=== PATIENT | female | born 1985 | race Caucasian/White ===

== ENCOUNTER 2020-08-18 12:30 | Emergency (ER) | payer MEDICAID ==
[2020-08-18 12:36] VITALS: RESP 16; TEMP 98.2
[2020-08-18] MEDS ORDERED: LIDOCAINE 1% INJ 10MG/ML (20 ML MDV) SQ STA (12:52)
--- NOTE | 2020-08-18 12:53 | ED ---
General Adult HPI - General Chief complaint: Wound/Laceration Stated complaint: finger lac Time Seen by Provider: 08/18/20 12:45 Source: patient Mode of arrival: ambulatory Limitations: no limitations - History of Present Illness Initial comments: 35-year-old female presents to the emergency room for a chief complaint of laceration. Patient states that her glass shower door shattered. States she cut her right arm and hand. Patient states she did have a small piece of glass in her foot but she was able to get that out and she no longer has pain. Patient is up-to-date on tetanus as of 1 year ago. Patient denies any difficulty moving the fingers.Patient has no other complaints at this time including shortness of breath, chest pain, abdominal pain, nausea or vomiting, headache, or visual changes. - Related Data Allergies Allergy/AdvReac Type Severity Reaction Status Date / Time No Known Allergies Allergy Verified 08/18/20 12:59 Review of Systems ROS Statement: Those systems with pertinent positive or pertinent negative responses have been documented in the HPI. ROS Other: All systems not noted in ROS Statement are negative. Past Medical History Past Medical History: No Reported History History of Any Multi-Drug Resistant Organisms: None Reported Past Surgical History: No Surgical Hx Reported Past Psychological History: No Psychological Hx Reported Smoking Status: Current every day smoker Past Alcohol Use History: None Reported Past Drug Use History: None Reported General Exam Limitations: no limitations General appearance: alert, in no apparent distress Head exam: Present: atraumatic, normocephalic, normal inspection Eye exam: Present: normal appearance, PERRL, EOMI. Absent: scleral icterus, conjunctival injection, periorbital swelling ENT exam: Present: normal exam, mucous membranes moist Neck exam: Present: normal inspection, full ROM. Absent: tenderness, meningismus, lymphadenopathy Respiratory exam: Present: normal lung sounds bilaterally. Absent: respiratory distress, wheezes, rales, rhonchi, stridor Cardiovascular Exam: Present: regular rate, normal rhythm, normal heart sounds. Absent: systolic murmur, diastolic murmur, rubs, gallop, clicks Extremities exam: Present: full ROM (Full range of motion of the right hand.), normal capillary refill (Capillary refill less than 2 seconds right upper extremity. Radial pulse 2+.), other (Patient has a 1.5 cm laceration on the dorsal right hand and a 2 cm skin tear/laceration on the right forearm.) Course Vital Signs 08/18/20 12:32 Temperature 98.2 F Pulse Rate 122 H Respiratory 16 Rate Blood Pressure 176/110 O2 Sat by Pulse 97 Oximetry Procedures - Laceration Laceration #1 Consent Obtained: verbal consent Indication: laceration Site: hand Size (cm): 1 Description: linear Depth: simple, single layer Anesthetic Used: lidocaine 1% Anesthesia Technique: local infiltration Amount (mls): 2 Pre-repair: wound explored, irrigated extensively, deep structures intact Type of Sutures: nylon Size of Sutures: 5-0 Number of Sutures: 3 Technique: simple, interrupted Patient Tolerated Procedure: well, no complications Medical Decision Making - Medical Decision Making X-rays of the right hand and wrist are negative. I did also inspect for glass in the wound which is not evident. Wounds were irrigated thoroughly with saline pressure irrigation. Stitches were applied to the right hand. Steri-Strips to the right arm as this is not a deep laceration, more consistent with a skin tear. Patient does not have any more glass in her right foot on exam. States it feels better. Patient declines x-ray for this. Patient will return in 7-10 days. Return parameters discussed including signs of infection. She will otherwise follow-up with her doctor. Disposition Clinical Impression: Laceration Disposition: HOME SELF-CARE Condition: Good Instructions (If sedation given, give patient instructions): Laceration (ED), Care For Your Stitches (ED) Additional Instructions: Please keep area clean. Apply antibiotic ointment twice daily. Monitor for signs of infection such as spreading or streaking drainage, redness, or fever and return if these occur. Return if you have any other worsening symptoms. Is patient prescribed a controlled substance at d/c from ED?: No Referrals: Yvette Pike DO [REFERRING] - 1-2 days Time of Disposition: 13:51
--- NOTE | 2020-08-18 13:16 | XR ---
EXAMINATION TYPE: XR hand complete RT DATE OF EXAM: 08/18/2020 CLINICAL HISTORY: Laceration from glass TECHNIQUE: Frontal, lateral and oblique images of the right hand are obtained. COMPARISON: None. FINDINGS: No definite acute fracture, dislocation or radiopaque foreign body. Please note, not all glass is rad iopaque. IMPRESSION: No definite acute fracture, dislocation or radiopaque foreign body. Please note, not all glass is rad iopaque.
--- NOTE | 2020-08-18 13:17 | XR ---
EXAMINATION TYPE: XR wrist complete RT DATE OF EXAM: 08/18/2020 CLINICAL HISTORY: Laceration from glass TECHNIQUE: Frontal, lateral and oblique images of the right wrist are obtained. COMPARISON: None FINDINGS: No definite acute fracture, dislocation or radiopaque foreign body. Please note, not all gl ass is radiopaque. IMPRESSION: No definite acute fracture, dislocation or radiopaque foreign body. Please note, not all glass is rad iopaque.
[2020-08-18] MEDS ORDERED: BACITRACIN OINT 1 EACH PACKET TOPICAL STA (13:51)
[2020-08-18 14:04] VITALS: BP 148/95; PULSE 87
== END 2020-08-18 14:10 | disposition home or self-care (01) ==
LOC: EC 12:30
DX: S61.411A Laceration without foreign body of right hand, initial encounter (principal); F17.200 Nicotine dependence, unspecified, uncomplicated; W25.XXXA Contact with sharp glass, initial encounter
CPT/HCPCS: 73110; 73130; 99283; 12041; J2001

== ENCOUNTER 2021-04-10 15:12 | Emergency (ER) | payer MEDICAID, OTHER ==
[2021-04-10 15:21] VITALS: BP 150/105; PULSE 94; RESP 18; TEMP 98
--- NOTE | 2021-04-10 16:07 | XR ---
EXAMINATION TYPE: XR tibia fibula LT DATE OF EXAM: 04/10/2021 COMPARISON: NONE HISTORY: Pain . TECHNIQUE: 3 views FINDINGS: There is small vertical lucent line on the medial aspect medial tibial condyle that could b e related to nondisplaced chip fracture. This is unusual location for fracture. There is no sign of a joint effusion. The fibula is intact. The ankle joint appears anatomic IMPRESSION: Possible small chip fracture of the medial aspect medial tibial condyle that should be co rrelated with the physical exam.
--- NOTE | 2021-04-10 17:17 | US ---
EXAMINATION TYPE: US venous doppler duplex LE LT DATE OF EXAM: 04/10/2021 5:06 PM COMPARISON: NONE CLINICAL HISTORY: pain, fall, bruising . Post fall from 03/10/2021 leg pain and swelling. SIDE PERFORMED: Left TECHNIQUE: The lower extremity deep venous system is examined utilizing real time linear array sonog wendy with graded compression, doppler sonography and color-flow sonography. VESSELS IMAGED: Common Femoral Vein Deep Femoral Vein Greater Saphenous Vein * Femoral Vein Popliteal Vein Small Saphenous Vein * Proximal Calf Veins (* superficial vessels) No DVT seen at this time. Left Leg: Negative for DVT IMPRESSION: No evidence of deep vein thrombosis in the left leg.
--- NOTE | 2021-04-10 17:19 | ED ---
General Adult HPI - General Chief complaint: Extremity Injury, Lower Stated complaint: Lt leg pain/injury Time Seen by Provider: 04/10/21 15:26 Source: patient Mode of arrival: ambulatory Limitations: no limitations - History of Present Illness Initial comments: 35-year-old female presents for left leg pain. Patient states about 2 weeks ago she tripped and fell on her left knee. States this was bruised. However over the past 2 weeks she states the bruising has dropped into her ankle. She would like to make sure she does not have a blood clot. She denies any calf pain or tenderness.Patient has no other complaints at this time including shortness of breath, chest pain, abdominal pain, nausea or vomiting, headache, or visual changes. - Related Data Allergies Allergy/AdvReac Type Severity Reaction Status Date / Time No Known Allergies Allergy Verified 04/10/21 15:19 Review of Systems ROS Statement: Those systems with pertinent positive or pertinent negative responses have been documented in the HPI. ROS Other: All systems not noted in ROS Statement are negative. Past Medical History Past Medical History: No Reported History History of Any Multi-Drug Resistant Organisms: None Reported Past Surgical History: No Surgical Hx Reported Past Psychological History: No Psychological Hx Reported Smoking Status: Current every day smoker Past Alcohol Use History: None Reported Past Drug Use History: None Reported General Exam Limitations: no limitations General appearance: alert, in no apparent distress Head exam: Present: atraumatic Eye exam: Present: normal appearance, PERRL, EOMI. Absent: scleral icterus, conjunctival injection ENT exam: Present: normal exam, mucous membranes moist Neck exam: Present: normal inspection, full ROM. Absent: tenderness Respiratory exam: Present: normal lung sounds bilaterally. Absent: respiratory distress, wheezes Cardiovascular Exam: Present: regular rate, normal rhythm, normal heart sounds Extremities exam: Present: full ROM (Full range of motion of the left lower extremity including foot knee and ankle), normal capillary refill (Capillary refill less than 2 seconds, DP pulse 2+.), other (Mild ecchymosis noted to the left ankle and the proximal tibia area.). Absent: joint swelling, calf tenderness Neurological exam: Present: alert Course Vital Signs 04/10/21 15:19 Temperature 98 F Pulse Rate 94 Respiratory 18 Rate Blood Pressure 150/105 O2 Sat by Pulse 98 Oximetry Medical Decision Making - Medical Decision Making X-ray shows a possible small chip fracture of the medial aspect medial tibial condyle that should be correlated with physical exam. She does have tenderness to this area but does not have pain with weightbearing. I recommended a knee immobilizer which patient refused. States that she has a knee brace at home that she would like to use. She will follow up with orthopedics. She will return here for any worsening symptoms. Patient does not want to be written off of work. Ultrasound was negative for DVT Disposition Clinical Impression: Knee pain, left Narrative: chip fracture medial tibial condyle No evidence for DVT. Disposition: HOME SELF-CARE Instructions (If sedation given, give patient instructions): Knee Pain (ED) Additional Instructions: Your ultrasound is negative for DVT. Please use your knee brace and follow up with orthopedics. Return to the emergency room for any worsening symptoms. Is patient prescribed a controlled substance at d/c from ED?: No Referrals: Sumeet Che MD [Medical Doctor] - 1-2 days Samantha Louise DO [Doctor of Osteopathic Medicine] - 1-2 days Time of Disposition: 17:18
== END 2021-04-10 17:24 | disposition home or self-care (01) ==
LOC: EC 15:12
DX: S82.131A Displaced fracture of medial condyle of right tibia, initial encounter for closed fracture (principal); F17.200 Nicotine dependence, unspecified, uncomplicated; W01.0XXA Fall on same level from slipping, tripping and stumbling without subsequent striking against object, initial encounter

== ENCOUNTER 2021-05-20 11:01 | Emergency (ER) | payer MEDICAID ==
[2021-05-20 11:14] VITALS: RESP 18; TEMP 96.8
[2021-05-20] MEDS ORDERED: SODIUM CHLORIDE 0.9% 1,000 ML IV STA (11:49)
[2021-05-20] MEDS ORDERED: KETOROLAC 15 MG/ML 1 ML VIAL IVP STA (11:49)
--- NOTE | 2021-05-20 12:05 | ED ---
General Adult HPI - General Chief complaint: Extremity Problem,Nontraumatic Stated complaint: Leg pain, Dehydration Time Seen by Provider: 05/20/21 11:29 Source: patient, family Mode of arrival: wheelchair Limitations: no limitations - History of Present Illness Initial comments: This 35-year-old female presents to the emergency department with joint pain and bilateral knees and bilateral ankles. Patient states this has happened a couple other times in her past one taking Mucinex. Patient states when she gets dehydrated she begins to get joint pain. Patient states last week she was diagnosed with pneumonia and was on steroids and antibiotics. Patient states her pneumonia symptoms such as her cough and fever have resolved, however this morning around 4 AM she woke up with this joint pain. Patient states she was able to fall back asleep for a few hours, however when she woke up around 7 or 8:00 AM she still is experiencing this pain. Patient denies taking any pain medications. Patient states she has been taking Mucinex daily for the last 1-2 weeks. Patient states her pain is 8/10. Patient states the pain is described as more pressure like and states when she bends her knees/ankles or squeezes her knees/ankles it seems to slightly relieve the pressure. Patient states she does not want x-rays as she doesn't believe it is anything to do with her bones as she has not had any trauma or falls. Patient denies any swelling, erythema, calf pain, calf redness, calf tenderness, loss of sensation, tingling, numbness, loss of range of motion or pain radiating anywhere. Patient denies any chest pain, shortness of breath, abdominal pain, nausea, vomiting and headache and lightheadedness, dizziness, change in vision, change in bowel or bladder, back pain. - Related Data Allergies Allergy/AdvReac Type Severity Reaction Status Date / Time Iodinated Contrast Media Allergy Swelling Verified 05/20/21 11:14 Review of Systems ROS Statement: Those systems with pertinent positive or pertinent negative responses have been documented in the HPI. ROS Other: All systems not noted in ROS Statement are negative. Past Medical History Past Medical History: Pneumonia History of Any Multi-Drug Resistant Organisms: None Reported Past Surgical History: No Surgical Hx Reported Past Psychological History: No Psychological Hx Reported Smoking Status: Current every day smoker Past Alcohol Use History: None Reported Past Drug Use History: None Reported General Exam Limitations: no limitations General appearance: alert, in no apparent distress Head exam: Present: atraumatic, normocephalic, normal inspection Eye exam: Present: normal appearance, PERRL, EOMI. Absent: scleral icterus, conjunctival injection, periorbital swelling ENT exam: Present: normal exam, mucous membranes moist Neck exam: Present: normal inspection. Absent: tenderness, meningismus, lymphadenopathy Respiratory exam: Present: normal lung sounds bilaterally. Absent: respiratory distress, wheezes, rales, rhonchi, stridor Cardiovascular Exam: Present: regular rate, normal rhythm, normal heart sounds. Absent: systolic murmur, diastolic murmur, rubs, gallop, clicks GI/Abdominal exam: Present: soft, normal bowel sounds. Absent: distended, tenderness, guarding, rebound, rigid Extremities exam: Present: normal inspection, full ROM (Patient able to bend knees without any pain. Patient able to roll ankles left right side to side without any increased pain), normal capillary refill, other (When I squeeze patient's ankles or knees she states it does relieve the pressure bilaterally. No knee/ankle swelling, erythema, warmth, loss of range of motion, loss of sensation. DP pulses palpable bilaterally). Absent: tenderness, pedal edema, joint swelling, calf tenderness Back exam: Present: normal inspection, full ROM. Absent: CVA tenderness (R), CVA tenderness (L), paraspinal tenderness, vertebral tenderness Neurological exam: Present: alert, oriented X3, CN II-XII intact, normal gait Psychiatric exam: Present: normal affect, normal mood Skin exam: Present: warm, dry, intact, normal color. Absent: rash Course Vital Signs 05/20/21 11:08 Temperature 96.8 F L Pulse Rate 93 Respiratory 18 Rate Blood Pressure 129/87 O2 Sat by Pulse 100 Oximetry Medical Decision Making - Medical Decision Making This 35-year-old female since emergency Department with bilateral joint knee and ankle pain. Patient had similar symptoms prior and states it happens when she is dehydrated. She states she didn't drink any water at all yesterday. 1 L fluids and Toradol given. Patient states her symptoms improved and her pain dropped to 3/10. Patient instructed to follow up with her primary care provider next 1-2 days. Strict return precautions were discussed. Patient verbally agreed to plan. Patient sent home in stable condition. Case discussed in detail with my attending, Disposition Clinical Impression: Arthralgia Disposition: HOME SELF-CARE Condition: Stable Instructions (If sedation given, give patient instructions): Arthralgia (ED) Additional Instructions: Please take Tylenol and Motrin as directed at home for pain. Follow up with your primary care provider in next 1-2 days. Return to the emergency department with any new, worsening or concerning symptoms. Is patient prescribed a controlled substance at d/c from ED?: No Referrals: None,Stated [Primary Care Provider] - 1-2 days Nando Magaña [STAFF PHYSICIAN] - 1-2 days Time of Disposition: 13:27
[2021-05-20 13:38] VITALS: BP 148/85; PULSE 68
== END 2021-05-20 13:42 | disposition home or self-care (01) ==
LOC: EC 11:01
DX: M25.572 Pain in left ankle and joints of left foot (principal); M25.571 Pain in right ankle and joints of right foot; F17.200 Nicotine dependence, unspecified, uncomplicated; Z91.041 Radiographic dye allergy status
CPT/HCPCS: 99283; 96374; 96361; J1885

== ENCOUNTER 2021-05-20 21:43 | Emergency (ER) | payer MEDICAID ==
[2021-05-20 21:59] VITALS: TEMP 98
[2021-05-20] MEDS ORDERED: SODIUM CHLORIDE 0.9% 1,000 ML IV STA (22:29)
[2021-05-20] MEDS ORDERED: ONDANSETRON 4 MG/2 ML VIAL IVP STA (22:29)
[2021-05-20] MEDS ORDERED: MORPHINE SULFATE 4 MG/ML SYRINGE IV STA (22:29)
[2021-05-20 22:57] LABS: Anisocytosis Slight; Basophils # (A) 0.1 k/uL (0-0.2); Basophils % (A) 1 %; Eosinophils # (A) 0.2 k/uL (0-0.7); Eosinophils % (A) 2 %; HCT 39.4 % (34.0-46.0); Lymphocytes # (A) 2.3 k/uL (1.0-4.8); Lymphocytes % (A) 23 %; MCH 30.4 pg (25.0-35.0); MCHC 32.9 g/dL (31.0-37.0); MCV 92.4 fL (80.0-100.0); Mean Platelet Volume 9.2; Monocytes # (A) 0.4 k/uL (0-1.0); Monocytes % (A) 4 %; Neutrophils % (A) 69 %; Platelet Count 278 k/uL (150-450); RBC 4.27 m/uL (3.80-5.40); RDW 16.4 % (11.5-15.5); WBC 10.1 k/uL (3.8-10.6)
[2021-05-20 23:08] VITALS: BP 130/85; PULSE 88; RESP 18
[2021-05-20 23:09] LABS: ALT 175 U/L (4-34); AST 67 U/L (14-36); African American GFR (CKD) >90 (>60 ml/min/1.73 sqM); Albumin 3.3 g/dL (3.5-5.0); Alkaline Phosphatase 87 U/L (38-126); Anion Gap 6 mmol/L; Blood Urea Nitrogen 7 mg/dL (7-17); Calcium 8.3 mg/dL (8.4-10.2); Carbon Dioxide 24 mmol/L (22-30); Chloride 103 mmol/L (98-107); Glucose 94 mg/dL (74-99); Non-African American GFR(CKD) >90 (>60 ml/min/1.73 sqM); Potassium 3.9 mmol/L (3.5-5.1); Sodium 133 mmol/L (137-145); Total Bilirubin 0.7 mg/dL (0.2-1.3); Total Protein 5.9 g/dL (6.3-8.2)
--- NOTE | 2021-05-20 23:30 | XR ---
EXAMINATION TYPE: XR chest 2V DATE OF EXAM: 05/20/2021 COMPARISON: NONE HISTORY: Cough TECHNIQUE: This 2 view FINDINGS: Heart and mediastinum are normal. Lungs are clear of infiltrate. There is no heart failure. There are no hilar masses. Bony thorax is intact. IMPRESSION: Normal chest.
[2021-05-20 23:55] LABS: Erythrocyte Sedimentation Rate 2 mm/hr (0-20)
[2021-05-21] MEDS ORDERED: methylPREDNISolone SOD SUCCI 125 MG/2 ML VIAL IV STA (00:16)
[2021-05-21] MEDS ORDERED: ACET/COD 300 MG/30 MG STARTER PACK 6 TAB BTL PO STA (01:26)
--- NOTE | 2021-05-21 01:29 | ED ---
Extremity Problem HPI - General Chief complaint: Extremity Problem,Nontraumatic Stated complaint: trouble walking-revisit Time Seen by Provider: 05/20/21 22:13 Source: patient, RN notes reviewed Mode of arrival: wheelchair - History of Present Illness Initial comments: This is a pleasant 35-year-old female who presents to the emergency department complaining of polyarthralgia which is symmetrical. Patient was seen here earlier today and released after getting a dose of Toradol. Of note, the patient has been treated twice for bronchitis with antibiotics starting on May 07. The patient was on doxycycline and then another antibiotic. Patient's also had 2 rounds of corticosteroids. Finish the Medrol Dosepak on Monday. Patient has no other health problems. No history of rheumatoid arthritis or autoimmune disorders. Patient has been immunized against COVID-19. Patient had a negative COVID-19 test.. No headache, no fever or chills, no changes in vision or hearing, no sore throat or difficulty with speech, no neck pain, no chest pain or shortness of breath, no abdominal pain, no nausea or vomiting, no changes in urination or bowel mov ements, no numbness or tingling, no skin rashes or lesions. MD Complaint: joint pain (Bilateral ankles, bilateral knees, bilateral wrists.) Onset/Timin -: days(s) Location: left, right, upper extremity, lower extremity, knee, other (Wrist/ankles) History of Same: Yes (Has a history of at least 2 other exacerbations which were similar) -: No myalgia, Yes arthralgia, No fever, No associated dyspnea, No associated chest pain Radiation: none Severity scale (1-10): 9 Quality: aching Consistency: constant Improves with: immobilization Worsens with: weight bearing, walking Associated Symptoms: other (Patient has had a cough and actually was treated for bronchitis starting on May 07.) - Related Data Home Medications Medication Instructions Recorded Confirmed Doxycycline Hyclate 100 mg PO BID 05/20/21 05/20/21 Omeprazole Magnesium [PriLOSEC OTC] 20 mg PO DAILY 05/20/21 05/20/21 Allergies Allergy/AdvReac Type Severity Reaction Status Date / Time Iodinated Contrast Media Allergy Swelling Verified 05/20/21 23:20 Review of Systems ROS Statement: Those systems with pertinent positive or pertinent negative responses have been documented in the HPI. ROS Other: All systems not noted in ROS Statement are negative. Past Medical History Past Medical History: Pneumonia History of Any Multi-Drug Resistant Organisms: None Reported Past Surgical History: No Surgical Hx Reported Past Psychological History: No Psychological Hx Reported Smoking Status: Current every day smoker Past Alcohol Use History: None Reported Past Drug Use History: None Reported General Exam General appearance: alert, in no apparent distress Head exam: Present: atraumatic, normocephalic, normal inspection Eye exam: Present: normal appearance, PERRL, EOMI. Absent: scleral icterus, conjunctival injection, periorbital swelling ENT exam: Present: normal exam, normal oropharynx, mucous membranes moist Neck exam: Present: normal inspection. Absent: tenderness, meningismus, lymphadenopathy Respiratory exam: Present: normal lung sounds bilaterally. Absent: respiratory distress, wheezes, rales, rhonchi, stridor Cardiovascular Exam: Present: regular rate, normal rhythm, normal heart sounds. Absent: systolic murmur, diastolic murmur, rubs, gallop, clicks GI/Abdominal exam: Present: soft, normal bowel sounds. Absent: distended, tenderness, guarding, rebound, rigid Extremities exam: Present: normal inspection, full ROM (With discomfort), normal capillary refill, other (no calor, no rubor, no effusion, pulses are 2+4, distal sensation intact. Capillary refill less than 2 seconds.). Absent: tenderness, pedal edema, joint swelling, calf tenderness Back exam: Present: normal inspection Neurological exam: Present: alert, oriented X3, CN II-XII intact Psychiatric exam: Present: normal affect, normal mood Skin exam: Present: warm, dry, intact, normal color. Absent: rash Course Vital Signs 05/20/21 05/20/21 21:53 23:05 Temperature 98 F Pulse Rate 89 88 Respiratory 19 18 Rate Blood Pressure 111/83 130/85 O2 Sat by Pulse 98 97 Oximetry Medical Decision Making - Medical Decision Making Patient presented to the emergency department with symmetrical polyarthralgia affecting the ankles, knees, and wrist. No definitive abnormality was seen here. Patient has also had treatment for bronchitis with 2 antibiotics and has had 2 rounds of corticosteroids finishing on Monday. Chest x-ray was clear here. This does raise the suspicion of a rheumatological disorder. Patient was given follow-up with local primary care physician as well as the local global program director. The case was discussed in detail with ED attending physician. Presentation, fi ndings, treatment plan discussed in detail. All results discussed. Some testing was pending. All questions answered. Patient was much improved at discharge. Patient was told to return to the ER for any signs or symptoms worsen. Told to return immediately if any other problems arise. All questions answered. Treatment plan discussed. Patient in agreement Every effort has been made to ensure accuracy of this dictation. However, due to the limitations of electronic medical records and dictation devices, errors in charting still occur. - Lab Data Result diagrams: 05/20/21 22:43 05/20/21 22:43 Lab Results 05/20/21 05/20/21 05/20/21 Range/Units 22:43 22:43 22:43 WBC 10.1 (3.8-10.6) k/uL RBC 4.27 (3.80-5.40) m/uL Hgb 13.0 (11.4-16.0) gm/dL Hct 39.4 (34.0-46.0) % MCV 92.4 (80.0-100.0) fL MCH 30.4 (25.0-35.0) pg MCHC 32.9 (31.0-37.0) g/dL RDW 16.4 H (11.5-15.5) % Plt Count 278 (150-450) k/uL MPV 9.2 Neutrophils % 69 % Lymphocytes % 23 % Monocytes % 4 % Eosinophils % 2 % Basophils % 1 % Neutrophils # 7.0 (1.3-7.7) k/uL Lymphocytes # 2.3 (1.0-4.8) k/uL Monocytes # 0.4 (0-1.0) k/uL Eosinophils # 0.2 (0-0.7) k/uL Basophils # 0.1 (0-0.2) k/uL Anisocytosis Slight ESR 2 (0-20) mm/hr Sodium 133 L (137-145) mmol/L Potassium 3.9 (3.5-5.1) mmol/L Chloride 103 (98-107) mmol/L Carbon Dioxide 24 (22-30) mmol/L Anion Gap 6 mmol/L BUN 7 (7-17) mg/dL Creatinine 0.49 L (0.52-1.04) mg/dL Est GFR (CKD-EPI)AfAm >90 (>60 ml/min/1.73 sqM) Est GFR (CKD-EPI)NonAf >90 (>60 ml/min/1.73 sqM) Glucose 94 (74-99) mg/dL Calcium 8.3 L (8.4-10.2) mg/dL Total Bilirubin 0.7 (0.2-1.3) mg/dL AST 67 H (14-36) U/L ALT 175 H (4-34) U/L Alkaline Phosphatase 87 (38-126) U/L C-Reactive Protein 1.0 H (<1.0) mg/dL Total Protein 5.9 L (6.3-8.2) g/dL Albumin 3.3 L (3.5-5.0) g/dL Coronavirus (PCR) (Not Detectd) Heterophile Antibody Negative (Negative) Influenza Type A RNA (Not Detectd) Influenza Type B (PCR) (Not Detectd) 05/20/21 05/20/21 Range/Units 22:43 22:43 WBC (3.8-10.6) k/uL RBC (3.80-5.40) m/uL Hgb (11.4-16.0) gm/dL Hct (34.0-46.0) % MCV (80.0-100.0) fL MCH (25.0-35.0) pg MCHC (31.0-37.0) g/dL RDW (11.5-15.5) % Plt Count (150-450) k/uL MPV Neutrophils % % Lymphocytes % % Monocytes % % Eosinophils % % Basophils % % Neutrophils # (1.3-7.7) k/uL Lymphocytes # (1.0-4.8) k/uL Monocytes # (0-1.0) k/uL Eosinophils # (0-0.7) k/uL Basophils # (0-0.2) k/uL Anisocytosis ESR (0-20) mm/hr Sodium (137-145) mmol/L Potassium (3.5-5.1) mmol/L Chloride (98-107) mmol/L Carbon Dioxide (22-30) mmol/L Anion Gap mmol/L BUN (7-17) mg/dL Creatinine (0.52-1.04) mg/dL Est GFR (CKD-EPI)AfAm (>60 ml/min/1.73 sqM) Est GFR (CKD-EPI)NonAf (>60 ml/min/1.73 sqM) Glucose (74-99) mg/dL Calcium (8.4-10.2) mg/dL Total Bilirubin (0.2-1.3) mg/dL AST (14-36) U/L ALT (4-34) U/L Alkaline Phosphatase (38-126) U/L C-Reactive Protein (<1.0) mg/dL Total Protein (6.3-8.2) g/dL Albumin (3.5-5.0) g/dL Coronavirus (PCR) Not Detected (Not Detectd) Heterophile Antibody (Negative) Influenza Type A RNA Not Detected (Not Detectd) Influenza Type B (PCR) Not Detected (Not Detectd) - Radiology Data Radiology results: report reviewed, image reviewed Disposition Clinical Impression: Polyarthralgia, Cough Disposition: HOME SELF-CARE Condition: Good Instructions (If sedation given, give patient instructions): Arthralgia (ED) Additional Instructions: Follow-up with the primary care physician and the global program director. Return to the ER immediately if any symptoms worsen, new symptoms arise, or any other problems develop. Is patient prescribed a controlled substance at d/c from ED?: No Referrals: Veronica Petersen MD [STAFF PHYSICIAN] - As Soon As Possible Nando Magaña [STAFF PHYSICIAN] - As Soon As Possible Time of Disposition: 01:27
[2021-05-21 02:08] LABS: Rheumatoid Factor, Qnt <10 IU/mL (0-15)
[2021-05-21 12:02] LABS: Lyme IgG/IgM 0.03 Index
== END 2021-05-21 01:51 | disposition home or self-care (01) ==
LOC: EC 21:43
DX: M25.572 Pain in left ankle and joints of left foot (principal); M25.571 Pain in right ankle and joints of right foot; M25.562 Pain in left knee; M25.561 Pain in right knee; R05.9 Cough, unspecified; Z91.041 Radiographic dye allergy status; F17.200 Nicotine dependence, unspecified, uncomplicated; Z20.822 Contact with and (suspected) exposure to COVID-19
CPT/HCPCS: 36415; 80053; 85652; 85025; 86140; 86308; 86431; 87502; 87635; 71046; 99284; 96374; 96375; 96361; J2270; J2405; 86038; 86618

== ENCOUNTER → 2021-05-26 | Outpatient (CLI) | payer MEDICAID ==
[2021-05-26 19:07] LABS: Basophils # (A) 0.05 X 10*3/uL (0.00-0.10); Basophils % (A) 0.4 %; Eosinophils # (A) 0.06 X 10*3/uL (0.04-0.35); Eosinophils % (A) 0.5 %; HCT 39.5 % (37.2-46.3); HGB 12.6 g/dL (12.0-15.0); Immature Grans, Automated 0.8 %; Lymphocytes # (A) 2.02 X 10*3/uL (0.90-5.00); Lymphocytes % (A) 16.9 %; MCH 29.4 pg (27.0-32.0); MCHC 31.9 g/dL (32.0-37.0); MCV 92.3 fL (80.0-97.0); Mean Platelet Volume 11.7 fL (9.5-12.2); Monocytes # (A) 0.63 X 10*3/uL (0.20-1.00); Monocytes % (A) 5.3 %; NRBC Per 100 WBC 0 /100 WBCS (0.0-0.0); Neutrophils # (A) 9.13 X 10*3/uL (1.80-7.70); Neutrophils % (A) 76.1 %; Platelet Count 282 X 10*3/uL (140-440); RBC 4.28 X 10*6/uL (4.10-5.20); RDW 18.4 % (11.5-14.5); WBC 11.98 X 10*3/uL (4.50-10.00)
[2021-05-26 19:24] LABS: ALT 255 U/L (8-44); AST 76 U/L (13-35); African American GFR (CKD) 144.3 (60.0-200.0); Albumin 4.4 g/dL (3.8-4.9); Alkaline Phosphatase 83 U/L (41-126); Calcium 9.3 mg/dL (8.7-10.3); Carbon Dioxide 22.8 mmol/L (20.0-27.5); Chloride 100 mmol/L (96-109); Creatine Kinase 20 U/L (26-186); Globulin 2.2 g/dL (1.6-3.3); Glucose 89 mg/dL (70-110); LDL Cholesterol,Calculated 124.6 mg/dL (0.0-131.0); Non-African American GFR(CKD) 124.5 (60.0-200.0); Potassium 4.4 mmol/L (3.5-5.5); Sodium 135 mmol/L (135-145); Total Protein 6.6 g/dL (6.2-8.2); Uric Acid 5.7 mg/dL (2.9-7.7); VLDL Calculation 19.38 mg/dL (5.00-40.00)
[2021-05-26 22:40] LABS: Cyclic Citrull Pep IgG Unit <0.5 U/mL; Cyclic Citrullinated Pep IgG NEGATIVE (NEGATIVE)
[2021-05-27 11:53] LABS: Angiotensin-1 Converting Enz. 22 U/L (8-52)
[2021-05-27 12:47] LABS: HLA B27 NEGATIVE
== END | disposition home or self-care (01) ==
LOC: LABWHC1 13:34
PROVIDERS: ATTEND Family Medicine
DX: Z00.00 Encounter for general adult medical examination without abnormal findings (principal); M13.0 Polyarthritis, unspecified
CPT/HCPCS: 36415; 80053; 80061; 82164; 82306; 82550; 83520; 84439; 84443; 84550; 85025; 86200; 86812

== ENCOUNTER → 2021-06-03 | Outpatient (CLI) | payer MEDICAID ==
--- NOTE | 2021-06-03 13:36 | XR ---
Lumbosacral spine HISTORY: M 54.16, radiculopathy 5 views of lumbosacral spine There is some mild loss of disc height L5-S1. Lumbar vertebral bodies show preserved height and align ment, bone mineralization. Sclerosis in the posterior elements of the lumbosacral junction may be due to facet arthropathy. There is no evident spondylolysis or spondylolisthesis. Mild spondylosis suspe cted. IMPRESSION: Mild degenerative disc disease, possible facet arthropathy
--- NOTE | 2021-06-03 13:37 | XR ---
Bilateral knees HISTORY: M25.561, M25.562 4 views of each knee submitted No comparisons Bone mineralization, joint spaces and alignment are maintained. There is no evident joint effusion. N o fracture or dislocation. IMPRESSION: No significant abnormality is evident.
== END | disposition home or self-care (01) ==
LOC: RADXRMAIN 13:05
PROVIDERS: ATTEND Internal Medicine Rheumatology
DX: M51.36 Other intervertebral disc degeneration, lumbar region (principal)
CPT/HCPCS: 72110

== ENCOUNTER → 2021-06-08 | Outpatient (CLI) | payer MEDICAID ==
--- NOTE | 2021-06-08 10:53 | US ---
EXAMINATION TYPE: US liver DATE OF EXAM: 06/08/2021 COMPARISON: NONE CLINICAL HISTORY: R74.01 ELEVATION OF LEVELS OF LIVER TRANSAMINASE L. EXAM MEASUREMENTS: Liver Length: 13.7 cm Gallbladder Wall: 0.2 cm CBD: 0.6 cm Right Kidney: 10.3 x 5.3 x 5.9 cm Pancreas: visualized portions wnl Liver: difficult to penetrate Gallbladder: No stones seen Evidence for sonographic Cotto's sign: No CBD: wnl Right Kidney: No hydronephrosis or masses seen Visualized pancreas appears within normal limits. Visualized liver heterogeneously hyperechoic. Evalu ation for focal masses suboptimal due to the heterogeneity. No adjacent ascites. No shadowing mobile gallstones. No intrahepatic or extrahepatic biliary dilatation. No right-sided hydronephrosis. IMPRESSION: Heterogeneous hyperechoic appearance of liver is likely on the basis of diffuse fatty inf iltration.
== END | disposition home or self-care (01) ==
LOC: RADUSWWP 09:37
PROVIDERS: ATTEND Family Medicine
DX: R74.01 Elevation of levels of liver transaminase levels (principal)
CPT/HCPCS: 76705

== ENCOUNTER → 2021-06-10 | Outpatient (CLI) | payer MEDICAID ==
[2021-06-10 10:52] LABS: Hepatitis A Antibody IgM Nonreactive (Nonreactive); Hepatitis B Core IgM Nonreactive (Nonreactive); Hepatitis B Surface Antigen Nonreactive (Nonreactive); Hepatitis C IgG Antibody Nonreactive (Nonreactive)
== END | disposition home or self-care (01) ==
LOC: LABWHC1 07:11
PROVIDERS: ATTEND Family Medicine
DX: R89.9 Unspecified abnormal finding in specimens from other organs, systems and tissues (principal)
CPT/HCPCS: 36415; 80074

== ENCOUNTER → 2022-01-14 | Outpatient (CLI) | payer MEDICAID, OTHER | END | disposition home or self-care (01) | LOC: LABMAIN 13:48 | PROVIDERS: ATTEND Internal Medicine Infectious Disease | DX: Z20.822 Contact with and (suspected) exposure to COVID-19 (principal) ==